=== PATIENT | male | born 1965 | race Two or more races ===

== ENCOUNTER 2020-03-07 22:43 | Emergency (ER) | payer MEDICAID, OTHER ==
[2020-03-07] MEDS: Sodium Chloride 0.9% 1,000 ML IV SCH (23:15)
[2020-03-07] MEDS: Nitroglycerin 0.4 MG Tab.SL SL ONE (23:15)
[2020-03-07] MEDS: Heparin Sodium 5,000 Units/ML Vial IVPUSH ONE (23:25)
[2020-03-07] MEDS: Heparin Sodium/0.45% NaCl 500 ML IV SCH (23:30)
[2020-03-07] MEDS: Alum Hydroxide/Mag Hydroxide 15 ML, Lidocaine 2% 15 ML PO ONE ×2 (23:36)
[2020-03-07] MEDS: Heparin Sodium 5,000 Units/ML Vial SUBCUT ONE (23:41)
--- NOTE | 2020-03-07 23:50 | EDM.PDOC ---
ED HPI GENERAL MEDICAL PROBLEM - General Chief Complaint: Chest Pain Stated Complaint: HEART Time Seen by Provider: 03/07/20 22:50 Source of Information: Reports: Patient History Limitations: Reports: No Limitations - History of Present Illness INITIAL COMMENTS - FREE TEXT/NARRATIVE: pt presents with retrosternal chest radiating to the jaw at about 9pm while eating , felt diaphortic and short of breath States he had similar pain yesterday that resolved Took 325 aspirin at onset of pain before coming [facility] Has no cardiac history Takes flomax and vitamins smokes 5cigs per day for past 40 yrs ? Father had DC at ?? age Onset: Today Onset Date: 03/07/20 Onset Time: 21:00 Duration: Hour(s): (2.5), Getting Worse Location: Reports: Chest Quality: Reports: Dull, Pressure Severity: Moderate Improves with: Reports: None Worsens with: Reports: Movement Associated Symptoms: Reports: Diaphoresis Treatments TITLE CHECKER: Reports: Aspirin (at home 325mg) - Related Data Allergies Allergy/AdvReac Type Severity Reaction Status Date / Time No Known Allergies Allergy Verified 03/07/20 22:48 Home Meds: Home Meds Aspirin 325 mg PO DAILY 03/07/20 [History] Tamsulosin [Tamsulosin 24 Hr] 0.4 mg PO DAILY 03/07/20 [History] ED ROS GENERAL - Review of Systems Review Of Systems: See Below Constitutional: Denies: Fever, Chills, Malaise HEENT: Reports: No Symptoms Respiratory: Denies: Shortness of Breath, Pleuritic Chest Pain, Cough Cardiovascular: Reports: Chest Pain. Denies: Blood Pressure Problem, Dyspnea on Exertion, Edema GI/Abdominal: Reports: No Symptoms Musculoskeletal: Reports: Arm Pain, Other (left sided jaw pain) Skin: Reports: No Symptoms Neurological: Reports: No Symptoms. Denies: Syncope, Tingling, Trouble Speaking, Difficulty Walking, Change in Speech, Gait Disturbance Psychiatric: Denies: Anxiety Hematologic/Lymphatic: Reports: No Symptoms Immunologic: Reports: No Symptoms ED EXAM, GENERAL - Physical Exam Exam: See Below Exam Limited By: No Limitations General Appearance: Alert, WD/WN, No Apparent Distress Throat/Mouth: Normal Inspection, Normal Oropharynx Head: Atraumatic, Normocephalic Neck: Normal Inspection, Supple, Non-Tender, Full Range of Motion Respiratory/Chest: No Respiratory Distress, Lungs Clear Cardiovascular: Normal Peripheral Pulses, Regular Rate, Rhythm GI/Abdominal: Soft, Non-Tender Back Exam: Normal Inspection, Full Range of Motion Extremities: Normal Inspection, Normal Range of Motion Neurological: Alert, Oriented, CN II-XII Intact Skin Exam: Warm, Dry, Intact #1 Interpretation EKG Date: 03/07/20 Time: 22:43 Rhythm: NSR P-Wave: Present QRS: Normal ST-T: Elevated (V2) QT: Normal Comparison: NA - No Prior EKG #2 Interpretation EKG Date: 03/07/20 Time: 23:41 Rhythm: NSR Moro: Normal P-Wave: Present QRS: Normal ST-T: Normal QT: Prolonged (borderline) Course - Vital Signs Last Recorded V/S: Last Vital Signs Temp 36.6 C 03/07/20 22:45 Pulse 108 H 03/07/20 22:45 Resp 20 03/08/20 00:15 BP 134/70 03/08/20 00:15 Pulse Ox 99 03/08/20 00:15 - Orders/Labs/Meds Orders: Active Orders 24 hr Category Date Time Status Chest 1V Frontal [CR] Stat Exams 03/07/20 23:00 Taken EKG 12 Lead [EK] Routine Ther 03/07/20 22:49 Ordered EKG 12 Lead [EK] Routine Ther 03/07/20 23:40 Ordered Labs: Laboratory Tests 03/07/20 03/07/20 03/07/20 Range/Units 22:55 22:55 22:55 WBC 8.3 (3.2-10.1) x10-3/uL RBC 4.74 (3.90-5.90) x10(6)uL Hgb 14.2 (12.9-17.7) g/dL Hct 42.6 (38.3-50.1) % MCV 89.8 (80.8-98.7) fL MCH 29.8 (27.0-33.3) pg MCHC 33.2 (28.7-35.3) g/dL RDW 14.1 (12.4-15.0) % Plt Count 201 (117-477) x10(3)uL MPV 9.9 (6.7-11.0) fL Neut % (Auto) 56.7 (40.3-71.8) % Lymph % (Auto) 26.9 (15.8-45.3) % Glascock % (Auto) 12.7 (5.5-15.2) % Eos % (Auto) 3.1 (0.1-6.8) % Baso % (Auto) 0.6 (0.3-3.8) % Neut # (Auto) 4.7 (1.7-6.9) x10-3/uL Lymph # (Auto) 2.2 (0.5-4.5) x10-3/uL Glascock # (Auto) 1.0 (0.0-1.2) x10-3/uL Eos # (Auto) 0.3 (0.0-0.6) x10-3/uL Baso # (Auto) 0.1 (0.0-0.3) x10-3/uL PT (9.0-11.1) sec INR (1.00-1.24) Sodium 141 (135-145) mmol/L Potassium 3.7 (3.5-5.3) mmol/L Chloride 104 (100-110) mmol/L Carbon Dioxide 22 (21-32) mmol/L BUN 19 H (7-18) mg/dL Creatinine 1.3 (0.70-1.30) mg/dL Est Cr Clr Drug Dosing 62.12 mL/min Estimated GFR (MDRD) 57 L (>60) BUN/Creatinine Ratio 14.6 (9-20) Glucose 148 H (80-116) mg/dL Calcium 8.2 L (8.6-10.2) mg/dL Total Bilirubin 0.5 (0.1-1.3) mg/dL AST 26 H (5-25) IU/L ALT 36 (12-36) U/L Alkaline Phosphatase 122 H (56-112) IU/L Troponin I 1208.8 H* (4.0-60.3) pg/mL Total Protein 7.2 (6.0-8.0) g/dL Albumin 4.0 (3.5-5.2) g/dL Globulin 3.2 g/dL Albumin/Globulin Ratio 1.3 // Range/Units 22:55 WBC (3.2-10.1) x10-3/uL RBC (3.90-5.90) x10(6)uL Hgb (12.9-17.7) g/dL Hct (38.3-50.1) % MCV (80.8-98.7) fL MCH (27.0-33.3) pg MCHC (28.7-35.3) g/dL RDW (12.4-15.0) % Plt Count (117-477) x10(3)uL MPV (6.7-11.0) fL Neut % (Auto) (40.3-71.8) % Lymph % (Auto) (15.8-45.3) % Glascock % (Auto) (5.5-15.2) % Eos % (Auto) (0.1-6.8) % Baso % (Auto) (0.3-3.8) % Neut # (Auto) (1.7-6.9) x10-3/uL Lymph # (Auto) (0.5-4.5) x10-3/uL [place]ascock # (Auto) (0.0-1.2) x10-3/uL Eos # (Auto) (0.0-0.6) x10-3/uL Baso # (Auto) (0.0-0.3) x10-3/uL PT 10.3 (9.0-11.1) sec INR 0.95 L (1.00-1.24) Sodium (135-145) mmol/L Potassium (3.5-5.3) mmol/L Chloride (100-110) mmol/L Carbon Dioxide (21-32) mmol/L BUN (7-18) mg/dL Creatinine (0.70-1.30) mg/dL Est Cr Clr Drug Dosing mL/min Estimated GFR (MDRD) (>60) BUN/Creatinine Ratio (9-20) Glucose (80-116) mg/dL Calcium (8.6-10.2) mg/dL Total Bilirubin (0.1-1.3) mg/dL AST (5-25) IU/L ALT (12-36) U/L Alkaline Phosphatase (56-112) IU/L Troponin I (4.0-60.3) pg/mL Total Protein (6.0-8.0) g/dL Albumin (3.5-5.2) g/dL Globulin g/dL Albumin/Globulin Ratio Meds: Medications Discontinued Medications Generic Name Dose Route Start Last Admin Trade Name Ashvin PRN Reason Stop Dose Admin Clopidogrel Bisulfate 300 mg 03/07/20 23:57 03/08/20 00:05 Plavix PO 03/07/20 23:58 300 mg ONETIME ONE Administration Al Hydroxide/Mg Hydroxide 15 0 ml 03/07/20 23:04 03/07/20 23:36 ml/ Lidocaine HCl 15 ml PO 03/07/20 23:05 Not Given ONETIME ONE Heparin Sodium (Porcine) 5,000 units 03/07/20 23:21 03/07/20 23:41 Heparin Sodium SUBCUT 03/07/20 23:22 Not Given ONETIME ONE Heparin Sodium (Porcine) 5,000 units 03/07/20 23:25 03/07/20 23:25 Heparin Sodium IVPUSH 03/07/20 23:26 5,000 units ONETIME ONE Administration Sodium Chloride 1,000 mls @ 150 mls/hr 03/07/20 23:15 03/07/20 23:15 Normal Saline IV 150 mls/hr ASDIRECTED SOM Administration Heparin Sodium/Sodium Chloride 500 mls @ 20 mls/hr 03/07/20 23:22 03/07/20 23:30 Heparin 25,000 Units In 1/2 Ns 500 Ml IV 20 mls/hr ASDIRECTED SOM Administration Nitroglycerin 0.4 mg 03/07/20 23:02 03/07/20 23:15 Nitrostat SL 03/07/20 23:03 0.4 mg ONETIME ONE Administration - Re-Assessments/Exams Free Text/Narrative Re-Assessment/Exam: 03/07/20 23:56 pt recieved Aspirin and NTG sublingual and pain in the jaw resolved , has no chest pain recieved IV heparin Bolus and drip 03/08/20 00:08 called made to [facility] : [employer] accepted pt based on initial EKG But after speaking with [employer] , had 2nd EKG: normal ( after NTG, heparin), chest pain and jaw pain has resolved unit clerk reviewed EKG and recommended pt still be transferred but to Cardiac unit Departure - Departure Time of Disposition: 12:15 Disposition: DC/Tfer to [facility] Reason for Transfer *Q: Other Condition: Fair Clinical Impression: STEMI (ST elevation myocardial infarction), Acute coronary syndrome Referrals: PCP,None [Primary Care Provider] - Forms: ED Department Discharge Sepsis Event Note (ED) - Evaluation Sepsis Screening Result: No Definite Risk - Focused Exam Vital Signs: Vital Signs Temp Pulse Resp BP BP Pulse Ox 03/08/20 00:15 20 134/70 99 03/08/20 00:00 18 138/71 97 03/07/20 23:45 20 138/74 97 03/07/20 23:30 20 131/66 98 03/07/20 23:20 16 135/68 99 03/07/20 23:15 16 127/74 143/95 H 98 03/07/20 23:00 16 140/95 H 99 03/07/20 22:45 36.6 C 108 H 18 141/94 H 99 - My Orders Last 24 Hours: My Active Orders 03/07/20 22:49 EKG 12 Lead [EK] Routine 03/07/20 23:00 Chest 1V Frontal [CR] Stat 03/07/20 23:40 EKG 12 Lead [EK] Routine - Assessment/Plan Last 24 Hours: My Active Orders 03/07/20 22:49 EKG 12 Lead [EK] Routine 03/07/20 23:00 Chest 1V Frontal [CR] Stat 03/07/20 23:40 EKG 12 Lead [EK] Routine
[2020-03-08] MEDS: Clopidogrel 75 MG Tab PO ONE (00:05)
== END 2020-03-08 00:20 | disposition critical access hospital (66) ==
LOC: FB.ED 22:43
DX: I21.3 ST elevation (STEMI) myocardial infarction of unspecified site (principal); I24.9 Acute ischemic heart disease, unspecified; Z79.82 Long term (current) use of aspirin; Z79.899 Other long term (current) drug therapy
CPT/HCPCS: 36415; 71045; 80053; 84484; 85025; 85610; 93005; 93010; 96365; 99285; 99285-25; A9270-GY; J1644; J7030